=== PATIENT | female | born 1950 | race Caucasian/White ===

== ENCOUNTER 2016-12-07 11:00 | Day surgery (SDC) | payer MEDICARE, OTHER ==
[~2016-12-07] VITALS: Ht 160 cm; Wt 54.0 kg
[~2016-12-07 11:00] MED LIST: ASPI-628 PO; ATRV10T PO; CALC-761 PO; CLOB15CR2 TP; ESTR0.9T PO; GENT5DRO OP; LACT1CAP65 PO; LEVO75TA36 PO; LORA0.5T PO; MAGN400C PO; METH2.5T PO; MULT-939 PO; OMEG-86 PO; OMEP20CA11 PO; SERT100T PO; SERT50TA PO; Sodium Chloride LOK Flush 10 mL Syringe IV PRN; fentaNYL-PF 50 mCg/mL 2 mL Inj IVPUSH PRN
[2016-12-07 12:01] VITALS: BP 139/75; PULSE 78; RESP 16; O2SAT 99
[2016-12-07] MEDS ORDERED: ASPI-973 PO (12:07)
[2016-12-07] MEDS ORDERED: ROSU10TA24 PO (12:07)
[2016-12-07] MEDS: 0.9% Sodium Chloride 1,000 ML IV SCH ×2 (12:40→13:11)
[2016-12-07 13:25] VITALS: BP 135/62; PULSE 76; RESP 16; O2SAT 100
--- NOTE | 2016-12-07 13:26 | PCM.ENDEGD ---
EGD Date of Service: Dec 07, 2016 Physician Jerod Marques MD Pre Procedure Diagnosis: Abdominal pain Post Procedure Dx & Findings: Gastritis Procedure Esophagogastroduodenoscopy PROCEDURE IN DETAIL: After proper sedation, Olympus video endoscope was inserted into patient's mouth and esophagus was successfully intubated. Scope introduced esophagus. Esophagus showed normal shiny whitish mucosa consistent with squamous cell component. Z line was intact at 40 cm from the incisors. Scope further advanced to the stomach. The antrum showed redness and edema consistent with gastritis. Biopsies obtained. Cardia fundus body antrum pylorus were all visualized. Retroflexion was done. Stomach was easily inflated and deflatable using air. Scope further events to the distal duodenum. Duodenum revealed normal villous structures with normal appearing folds without any mass ulcer erosion. 5 biopsies obtained. Impression Gastritis Recommendation Await Biopsies Presedation Assessment Risks and Benefits Informed consent was obtained from the patient after all risks and benefits including but not limited to drug reaction, infection, pain, bleeding, perforation, as well as alternatives were discussed. Patient monitoring Continuous pulse oximetry, cardiac monitoring, blood pressure monitoring, IV access, and oxygen at 2L per nasal cannula. Periprocedural Fentanyl: Fentanyl 125mcg Incrementally Midazolam: Midazolam 7mg Incrementally Complications There were no periprocedural complications identified. Post Procedure Plan Post Procedure Recommendations 1. Restrict activities today. 2. Resume normal activities in the morning. 3. Resume medications. 4. GERD behavioral modification: - Avoid fatty, acidic, spicy, large meals - Do not lie down after meals - Do not eat or drink anything for at least 2 1/2 hours before going to bed at night - Discontinue tobacco and alcohol - Decrease or avoid caffeine - Avoid chocolate and mints - Decrease weight - Avoid aspirin and non steroidal anti-inflammatory agents (NSAID) such as Aleve, Advil, Mobic, Naproxen, Ibuprofen, etc 5. Add proton pump inhibitor. Take 30 minutes before 1st meal of the day. 6. Patient informed of normal post procedure side effects as bloating, drowsiness, blood streaking in the stool 7. If gastric biopsy reveal H.pylori, continue with appropriate treatment 8. If small bowel biopsy reveals celiac, continue with appropriate treatment 9. Please don't hesitate to call me with any questions Jerod Marques MD Dec 07, 2016 13:26
--- NOTE | 2016-12-07 13:28 | PCM.ENDCOL ---
Colonoscopy Date of Service: Dec 07, 2016 Physician Jerod Marques MD Pre Procedure Diagnosis: Change in bowel patterns Post Procedure Dx & Findings: Diverticuli hemorrhoid polyp Procedure Colonoscopy PROCEDURE IN DETAIL: Prep adequate Withdrawal time 13 minutes After unremarkable rectal examination the Olympus video colonoscope was inserted patient's anal canal and was advanced to cecum. Landmarks were identified including the ileocecal valve and appendiceal orifice. Scope was advanced to terminal ileum. About 5 cm. Normal villous structures without ulcer or mass erosion noted. Scope was withdrawn systematically. Visualized colonic mucosa showed healthy shiny mucosa with normal healthy-appearing vasculature. 3 mm rectal polyp noted. This was removed completely using hot snare. In the sigmoid colon, a few small diverticuli noted. In the rectum retroflexion was done which showed hemorrhoids. Anal canal was inspected carefully on the way out and hemorrhoids noted also skin tags noted. Impression Polyp 1 status post complete removal Diverticuli Hemorrhoids Recommendation Repeat colonoscopy in 5 years Diverticular diet Presedation Assessment Risks and Benefits Informed consent was obtained from the patient after all risks and benefits including but not limited to drug reaction, infection, pain, bleeding, perforation, as well as alternatives were discussed. Patient monitoring Continuous pulse oximetry, cardiac monitoring, blood pressure monitoring, IV access, and oxygen at 2L per nasal cannula. Periprocedural Fentanyl: Fentanyl 125mcg Incrementally Midazolam: Midazolam 7mg Incrementally Complications There were no periprocedural complications identified. Post Procedure Plan Post Procedure Recommendations 1. Restrict activities today. 2. Resume normal activities in the morning. 3. Resume medications. 4. Patient informed of normal post procedure side effects as bloating, drowsiness, blood streaking in the stool. 5. average risk CRCS. If colon polyps come back as: -Hyperplastic- can repeat colonoscopy in 10 years -Tubular adenoma- repeat colonoscopy in 5 years -Tubulovillous/villous adenoma- repeat colonoscopy in 3 years -If any dysplasia- return to clinic as soon as possible 6. Please don't hesitate to call me with any questions. Jerod Marques MD Dec 07, 2016 13:28
[2016-12-07 13:30] VITALS: BP 136/59; PULSE 75; RESP 16; O2SAT 99
[2016-12-07 13:40] VITALS: BP 126/56; PULSE 72; RESP 16; O2SAT 99
[2016-12-07 13:50] VITALS: BP 136/57; PULSE 62; RESP 16; O2SAT 98
[2016-12-07 14:00] VITALS: BP 127/65; PULSE 78; RESP 16; O2SAT 99
--- NOTE | 2016-12-08 10:08 | PATH ---
SURGICAL PATHOLOGY Attending Physician:Jerod Marques M.D. CASE STATUS: Signed Out PATIENT NAME: DAYRON JAMESON PID: [id number] : 1950 DATE COLLECTED:12/07/2016 21:08 SPECIMEN: 1: Duodenum, Biopsy 2: Gastric, Biopsy 3: Rectum, Biopsy CLINICAL HISTORY: 1). DUODENUM BIOPSY 2). GASTRIC BIOPSY 3). RECTAL POLYP FINAL DIAGNOSIS: 1.DUODENUM, BIOPSY: FRAGMENTS OF NORMAL-APPEARING DUODENUM MUCOSA. Normal delicate mucosal villi present. Negative for significant inflammation, dysplasia and malignancy. 2.GASTRIC BIOPSY: FRAGMENT OF FUNDIC MUCOSA WITH MUCOSAL HYPEREMIA WITHOUT ASSOCIATED SIGNIFICANT INFLAMMATION. Negative for evidence of Helicobacter. Negative for intestinal metaplasia. Negative for dysplasia and malignancy. 3.RECTAL POLYP: FRAGMENTS OF ANAL TISSUE WITH CHRONIC INFLAMMATION AND GRANULATION TISSUE SUGGESTIVE OF ULCERATION, AND PROMINENT REACTIVE SQUAMOUS EPITHELIAL CHANGES. No rectal mucosa identified. Negative for dysplasia and malignancy. Histologic evaluation limited due to prominent cautery artifact. ICD10 K62.6 GROSS DESCRIPTION: The specimen is received in three formalin filled containers labeled with the patient's name. 1). The specimen is sublabeled "duodenum" and consists of 4 tiny portions of tissue which aggregate to 0.3 x 0.2 x 0.2 CM. The specimen is entirely submitted in cassette 1A. 2). The specimen is sublabeled "gastric" and consists of a 0.3 x 0.3 x 0.3 CM portion of tissue which is entirely submitted in cassette 2A. 3). The specimen is sublabeled "rectal polyp" and consists of a 0.1 x 0.1 x 0.1 CM portion of tissue which is entirely submitted in cassette 3A. 12/07/2016 [facility] MICRO DESCRIPTION: See diagnosis. ICD-9 CODES: CPT CODES: 1: 71614 2: 23662 3: 00080 Electronically Signed Out Preston Olea MD [facility] Pathology [facility] [address], [place] [address] Technical component performed at [facility], [facility] [address], [place], [address]
== END 2016-12-07 23:59 | disposition home or self-care (01) ==
LOC: END 11:00
PROVIDERS: ATTEND Internal Medicine
DX: K62.1 Rectal polyp (principal); K57.30 Diverticulosis of large intestine without perforation or abscess without bleeding; K64.9 Unspecified hemorrhoids; K29.70 Gastritis, unspecified, without bleeding; R19.4 Change in bowel habit; E03.9 Hypothyroidism, unspecified; L43.9 Lichen planus, unspecified; M79.7 Fibromyalgia; Z79.899 Other long term (current) drug therapy
CPT/HCPCS: 43239; 45385; 99153; G0500; J7030